=== PATIENT | male | born 1990 | race Caucasian/White ===

== ENCOUNTER 2018-07-28 21:26 | Emergency (ER) | payer SELFPAY ==
--- NOTE | 2018-07-28 21:29 | ER Report ---
History and Physical Time Seen By MD: 21:29 HPI/ROS CHIEF COMPLAINT: Palpitations and heart racing HISTORY OF PRESENT ILLNESS: 28-year-old male presents ambulatory to the ER complaining of URI symptoms for 1 week. [place] Patient had some trouble with acclamation to altitude. He's been having a dry cough. He's been having some chest tightness. He denies cardiac history. He denies history of asthma. He denies any medical history or medications. Patient notes no leg swelling or calf pain. Patient notes low-grade fevers. REVIEW OF SYSTEMS: Respiratory: As above Cardiovascular: As above Gastrointestinal: No vomiting, no abdominal pain. Musculoskeletal: No back pain. Allergies: Coded Allergies: No Known Drug Allergies (Unverified , 07/28/18) Home Meds No Active Prescriptions or Reported Meds Reviewed Nurses Notes: Yes Old Medical Records Reviewed: Yes Constitutional Vital Sign - Last 24 Hours 07/28/18 07/28/18 07/28/18 07/28/18 21:30 21:30 21:41 21:56 Temp 98.1 Pulse 88 84 93 Resp 14 11 12 B/P (MAP) 147/95 (112) 147/95 Pulse Ox 94 94 93 O2 Delivery Room Air 07/28/18 07/28/18 07/28/18 07/28/18 22:00 22:11 22:26 22:30 Pulse 84 83 Resp 15 15 B/P (MAP) 127/71 (89) 131/86 (101) Pulse Ox 94 95 07/28/18 07/28/18 07/28/18 22:43 22:56 23:00 Pulse 82 Resp 17 B/P (MAP) 132/83 (99) 135/95 (108) Pulse Ox 95 Physical Exam Vital signs stable, afebrile, pulse ox normal General Appearance: The patient is alert, has no immediate need for airway protection and no current signs of toxicity. Mild distress HEENT: Pupils equal and round no injection. TMs normal, oropharynx with mild erythema, no exudate or petechiae Respiratory: Chest is non tender, lungs are clear to auscultation. No wheezing. Rales or chest wall tenderness Cardiac: regular rate and rhythm, no murmur Gastrointestinal: Abdomen is soft and non tender, no masses, bowel sounds normal. Musculoskeletal: Neck: Neck is supple and non tender. No lymphadenopathy Extremities have full range of motion and are non tender. No edema, no calf tenderness Skin: No rashes or lesions. DIFFERENTIAL DIAGNOSIS: After history and physical exam differential diagnosis was considered for viral URI, anxiety, palpitations, altitude sickness, pneumonia, bronchitis, sinusitis, otitis media Medical Decision Making Data Points Result Diagram: 07/28/18220207/28/182202 Laboratory Hematology Test 07/28/18 22:03 Red Blood Count 5.72 M/uL (4.00-5.60) Mean Corpuscular Volume 85.8 fL (80.0-96.0) Mean Corpuscular Hemoglobin 30.3 pg (26.0-33.0) Mean Corpuscular Hemoglobin Concent 35.4 g/dL (32.0-36.0) Red Cell Distribution Width 13.5 % (11.5-14.5) Mean Platelet Volume 7.9 fL (7.2-11.1) Neutrophils (%) (Auto) 59.2 % (39.4-72.5) Lymphocytes (%) (Auto) 30.5 % (17.6-49.6) Monocytes (%) (Auto) 6.6 % (4.1-12.4) Eosinophils (%) (Auto) 2.7 % (0.4-6.7) Basophils (%) (Auto) 1.0 % (0.3-1.4) Nucleated RBC Relative Count (auto) 0.1 /100WBC Neutrophils # (Auto) 6.2 K/uL (2.0-7.4) Lymphocytes # (Auto) 3.2 K/uL (1.3-3.6) Monocytes # (Auto) 0.7 K/uL (0.3-1.0) Eosinophils # (Auto) 0.3 K/uL (0.0-0.5) Basophils # (Auto) 0.1 K/uL (0.0-0.1) Nucleated RBC Absolute Count (auto) 0.01 K/uL D-Dimer Quantitative (PE/DVT) 0.62 ug/ml (0-0.50) Sodium Level 139 mmol/L (137-145) Potassium Level 3.6 mmol/L (3.5-5.0) Chloride Level 103 mmol/L (98-107) Carbon Dioxide Level 24 mmol/L (22-30) Blood Urea Nitrogen 11 mg/dl (9-21) Creatinine 0.90 mg/dl (0.66-1.25) Glomerular Filtration Rate Calc > 60.0 Random Glucose 139 mg/dl (75-110) Calcium Level 9.2 mg/dl (8.4-10.2) Total Bilirubin 0.4 mg/dl (0.2-1.3) Aspartate Amino Transf (AST/SGOT) 44 U/L (0-35) Alanine Aminotransferase (ALT/SGPT) 94 U/L (0-56) Alkaline Phosphatase 62 U/L (0-126) Troponin I < 0.012 ng/ml Total Protein 7.8 g/dl (6.3-8.2) Albumin 4.3 g/dl (3.5-5.0) Chemistry Test 07/28/18 22:03 White Blood Count 10.4 k/uL (4.5-11.0) Red Blood Count 5.72 M/uL (4.00-5.60) Hemoglobin 17.4 g/dL (14.0-18.0) Hematocrit 49.1 % (42.0-52.0) Mean Corpuscular Volume 85.8 fL (80.0-96.0) Mean Corpuscular Hemoglobin 30.3 pg (26.0-33.0) Mean Corpuscular Hemoglobin Concent 35.4 g/dL (32.0-36.0) Red Cell Distribution Width 13.5 % (11.5-14.5) Platelet Count 286 K/uL (150-450) Mean Platelet Volume 7.9 fL (7.2-11.1) Neutrophils (%) (Auto) 59.2 % (39.4-72.5) Lymphocytes (%) (Auto) 30.5 % (17.6-49.6) Monocytes (%) (Auto) 6.6 % (4.1-12.4) Eosinophils (%) (Auto) 2.7 % (0.4-6.7) Basophils (%) (Auto) 1.0 % (0.3-1.4) Nucleated RBC Relative Count (auto) 0.1 /100WBC Neutrophils # (Auto) 6.2 K/uL (2.0-7.4) Lymphocytes # (Auto) 3.2 K/uL (1.3-3.6) Monocytes # (Auto) 0.7 K/uL (0.3-1.0) Eosinophils # (Auto) 0.3 K/uL (0.0-0.5) Basophils # (Auto) 0.1 K/uL (0.0-0.1) Nucleated RBC Absolute Count (auto) 0.01 K/uL D-Dimer Quantitative (PE/DVT) 0.62 ug/ml (0-0.50) Glomerular Filtration Rate Calc > 60.0 Calcium Level 9.2 mg/dl (8.4-10.2) Total Bilirubin 0.4 mg/dl (0.2-1.3) Aspartate Amino Transf (AST/SGOT) 44 U/L (0-35) Alanine Aminotransferase (ALT/SGPT) 94 U/L (0-56) Alkaline Phosphatase 62 U/L (0-126) Troponin I < 0.012 ng/ml Total Protein 7.8 g/dl (6.3-8.2) Albumin 4.3 g/dl (3.5-5.0) Coagulation Test 07/28/18 22:03 D-Dimer Quantitative (PE/DVT) 0.62 ug/ml EKG/Imaging EKG Interpretation 12 lead EK Rhythm: normal sinus rhythm [place]: normal QRS: normal ST segments: normal, no evidence of ischemia or dysrhythmia Imaging X-ray: Two-view chest x-ray was obtained. I viewed the images myself on the PACS system. My interpretation of the images is: No infiltrate, no effusion, normal mediastinum. The radiologist interpretation had no clinically significant variation from this interpretation. ED Course/Re-evaluation ED Course Patient was admitted to an examination room. H&P was done. The differential diagnoses was considered. On clinical examination. Patient has viral URI symptoms for 1 week. He has some symptoms due to [place] here in [place] He's had some mild shortness of breath and chest pal pitations. He's had no leg swelling or calf pain. Patient's EKG is unremarkable. His troponin returns unremarkable. His d-dimer slightly elevated. My suspicion for pulmonary embolism is extremely low. We'll not proceed with CTA pulmonary angiogram at this time. Patient's chest x-ray is unremarkable. Patient's here with viral URI symptoms and mild altitude illness. Patient advised [id number] treatment with ibuprofen, DayQuil and NyQuil. Patient advised to follow-up with primary care if unimproved in 3-5 days. Decision to Disposition Date: Jul 28, 2018 Decision to Disposition Time: 22:09 Depart Departure Latest Vital Signs Vital Signs Date Time Temp Pulse Resp B/P (MAP) Pulse Ox O2 Delivery O2 Flow Rate FiO2 07/28/18 23:00 135/95 (108) 07/28/18 22:56 82 17 95 07/28/18 21:30 98.1 Room Air Impression: Primary Impression: Viral upper respiratory infection Additional Impressions: Chest tightness Altitude sickness Hyperglycemia, unspecified Condition: Improved Disposition: HOME OR SELF-CARE New Scripts No Active Prescriptions or Reported Meds Patient Instructions: Upper Respiratory Infection (ED) Additional Instructions: Take DayQuil during the daytime, NyQuil at bedtime Take ibuprofen 200 mg 3 tablets 3 times a day for inflammatory pain relief and fever control Drink plenty of fluids Follow-up with primary care if unimproved in 3-5 days Problem Qualifiers Additional Impressions: Altitude sickness Encounter type: initial encounter Qualified Codes: T70.29XA - Other effects of high altitude, initial encounter ELPIDIO BARRAZA DO Jul 28, 2018 21:29
[2018-07-28 22:09] LABS: PLATELET COUNT, AUTOMATED 286 K/uL (150-450)
--- NOTE | 2018-07-28 22:22 | EKG ---
FACILITY: [facility] PATIENT NAME: UZIEL PÉREZ : [id number] MR: [id number] V: [id number] EXAM DATE: ORDERING PHYSICIAN: ELPIDIO BARRAZA TECHNOLOGIST: BARB Reddy Reason : Blood Pressure : / mmHG Vent. Rate : 084 BPM Atrial Rate : 084 BPM P-R Int : 162 ms QRS Dur : 094 ms QT Int : 356 ms P-R-T Axes : 033 -08 056 degrees QTc Int : 420 ms Normal sinus rhythm Normal ECG No previous ECGs available Confirmed by Tejas Bhatt ([id number]) on 07/28/2018 10:57:17 PM Referred By: Confirmed By:Tejas Wheat
[2018-07-28 23:00] VITALS: BP 135/95
--- NOTE | 2018-07-29 00:15 | RADIOLOGY IMAGING REPORT ---
FACILITY: [facility] PATIENT NAME: Vijay Anton : 1990 MR: [id number] V: [id number] EXAM DATE: ORDERING PHYSICIAN: ELPIDIO BARRAZA TECHNOLOGIST: Location: [facility] Patient: Vijay Anton : 1990 Visit/Account:[id number] Date of Sevice: 07/28/2018 CHEST: Indication: Dyspnea. Technique: Frontal and lateral views were obtained. Comparison: None. Skeletal and soft tissue structures: Intact and unremarkable. Heart and mediastinum: Within normal limits. Lung hurley: Well-expanded and clear. No focal or diffuse opacities. Pleural spaces: Unremarkable. Impression: No acute process. Report Dictated By: Lei Leyva MD at 07/29/2018 12:10 AM Report E-Signed By: Lei Leyva MD at 07/29/2018 12:11 AM WSN:[id number]
== END 2018-07-28 23:07 | disposition home or self-care (01) ==
LOC: ER 21:44
DX: J06.9 Acute upper respiratory infection, unspecified (principal); R07.89 Other chest pain; T70.20XA Unspecified effects of high altitude, initial encounter; R73.9 Hyperglycemia, unspecified
CPT/HCPCS: 36415; 71046; 82040; 82247; 82310; 82374; 82435; 82565; 82947; 84075; 84132; 84155; 84295; 84450; 84460; 84484; 84520; 85025; 85379; 93005; 99284